=== PATIENT | male | born 1930 | race Caucasian/White ===

== ENCOUNTER 2016-07-15 20:29 | Emergency (ER) | payer MEDICARE ==
[~2016-07-15] VITALS: Ht 177.8 cm; Wt 75.9 kg
[~2016-07-15 20:29] MED LIST: ASCO500T7 PO; ASPI-894 PO; DOCU100T2 PO; FURO-124 PO; GARL1TAB PO; LABE200T3 PO; LORA10TA7 PO; MAGN800O PO; PANT40TA3 PO; POLYETHYLENE GL17 GM PO; RIVA20TA PO; SCR1T1 PO; SULF-228 PO; VALS1TAB82 PO; VITA-189 PO; VITA0.4T7 PO; [UNRECOGNIZED DRUG - CODE] MM
--- OUTSIDE RECORDS SUMMARY | 2016-07-15 20:33 | XMS REPORT | Continuity of Care Document ---
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 Role Phone CHRISTIAN CASTILLO MD PCP [phone] Insurance Providers Payer Name Policy Number Subscriber Name Relationship Medicare A And B [id number] Junior Reno Acevedo 19 Self / Same As Patient [employer] [facility] Supp [id number] Junior Reno Acevedo Self / Same As Patient Advance Directives Directive Response Recorded Date/Time Advanced Directives No 01/25/16 4:47pm Chief Complaint and Reason for Visit Chief Complaint GI BLEED Reason for Visit Erosive esophagitis Foot pain GI bleed HCAP (healthcare-associated pneumonia) HTN (hypertension) Lower extremity edema Post-nasal drainage Seasonal allergies Problems Active Problems Medical Problem Onset Date Status Acute blood loss anemia Unknown Acute Allergic rhinitis Unknown Acute CAD (coronary artery disease) Unknown Acute Erosive esophagitis Unknown Acute Foot pain 09/30/2011 Acute GI bleed Unknown Acute HCAP (healthcare-associated pneumonia) Unknown Acute HTN (hypertension) Unknown Acute Lower extremity edema Unknown Acute Post-nasal drainage Unknown Acute Seasonal allergies Unknown Acute Medications Current Home Medications Medication Dose Units Route Directions Days/Qty Instructions Start Date Ascorbic Acid 500 Mg 500 Mg ORAL Twice A Day 01/25/16 Aspirin 81 Mg 81 Mg ORAL Daily 01/25/16 Loratadine 10 Mg 10 Mg ORAL Daily 01/25/16 Valsartan/Hydrochlorothiazide 1 Each 1 Each ORAL Daily 01/25/16 Vitamin B Complex/Folic Acid 0.4 Mg 0.4 Mg ORAL Daily 01/26/16 Pantoprazole Sodium (Protonix) 40 Mg 40 Mg ORAL Daily 0 02/04/16 Sucralfate (Carafate) 1 Gm 1 Gm ORAL Before Meals And At Bedtime 0 Dissolve 1 g tab in 20-30 ml water or juice. 02/04/16 Furosemide 40 Mg 60 Mg ORAL Daily 5 Days 02/04/16 Throat Lozenges 1 Ea 1 Ea SUBMUCOSAL Every 1 Hour as needed for Sore Throat 0 02/04/16 Polyethylene Glycol 3350 17 Gm 17 Gm ORAL Daily 0 02/04/16 Docusate Sodium 100 Mg 100 Mg ORAL Twice A Day as needed for Constipation 0 02/04/16 Magnesium Hydroxide 2,400 Mg/10 Ml 2,400 Mg ORAL Four Times Daily as needed for Constipation 0 02/04/16 Past Home Medications Medication Directions Ordered Status Trimethoprim/Sulfamethoxazole 1 Ea Tablet, 2 Ea Oral Twice A Day 09/30/11 Discontinued Labetalol Hcl 200 Mg Tablet, 200 Mg Oral Twice A Day 01/25/16 Discontinued Garlic 1 Each Tablet, 1 Each Oral Daily 01/25/16 Discontinued Vitamin B Complex 1 Each Tablet, 1 Each Oral Daily 01/25/16 Discontinued Rivaroxaban 20 Mg Tablet, 20 Mg Oral Daily@0800 01/25/16 Discontinued Social History Query Response Start Date Stop Date Smoking Status Former smoker Hospital Discharge Instructions Patient's Instructions Instructions Instructions * You were evaluated and treated for gastrointestinal bleeding due to esophageal erosions. The cause of this is uncertain but you will be treated with sucralfate and pantoprazole. You will need to have a repeat upper endoscopy in about 2 months to evaluate for healing. * For anemia, you received 8 units of blood. Your blood count is expected to recover further over time. * You were also treated for severe constipation. At discharge, you will take regular stool softeners to prevent constipation. You will need to have a colonoscopy which can be arranged with your repeat upper endoscopy in about 2 months. * Because of risk of further bleeding, it is recommended you stop taking your blood thinner, rivaroxaban (Xarelto), at this time. * You were treated for pneumonia in hospital. You completed antibiotic therapy and will have a follow-up chest x-ray in 2 weeks. * You were found to have aortic stenosis, a narrowing of one of your heart valves. Review the provided handout for details. Notify your provider if you experience worse fatigue, shortness of breath, swelling, cough, or any other concerns that might suggest congestive heart failure. * You are being discharged to [facility] for further rehab in skilled care. Some of you medications have changed temporarily. Your primary care doctor will make further adjustments as needed. Activity Instructions As tolerated. No driving until further instructed by your primary care doctor. Doctor's Appointment Follow-up with your primary care doctor in 3-5 days. Follow-up with Dr. Cherry in surgery as scheduled. Discharge Diet: Regular Orders DISCHARGE: Discharge to:: SNF Xfer Skilled Nurse Facill Plan of Care Discharge Date 02/04/16 1:37pm Disposition 03 XFER [facility] Instructions/Education Provided Sucralfate (By mouth) Pantoprazole (By mouth) Congestive Heart Failure (DC) Aortic Stenosis (DC) Gastrointestinal Bleeding (DC) Community-acquired Pneumonia (DC) Prescriptions See Medication Section Follow-up Orders CXR (CHEST PA/LAT (2 VIEW)* CBC WITH AUTOMATED DIFF* RENAL PROFILE Referrals GEORGE CHERRY MD (Surgical) - 04/06/16 Address: [address] [place] [id number] Care Plan and Goals See Discharge Instructions Section Functional Status Query Response Date Recorded Level of Conscious Alert Oriented x4 February 04, 2016 8:32am Movement Moves extremities Steady gait Hand fence installer foreman equal February 04, 2016 8:32am Allergies, Adverse Reactions, Alerts Allergen Type Severity Reaction Status Last Updated Penicillin Allergy Mild Active 01/31/14 Amiodarone Allergy Unknown Active 01/31/14 isomalt Allergy Unknown Active 01/31/14 Immunizations No immunization records. Vital Signs Acute Vital Signs Vital Response Date/Time Temperature (Fahrenheit) 97.8 02/04/2016 8:01am Pulse 70 bpm 02/04/2016 8:01am Respirations 18 02/04/2016 8:01am Height 5 ft 10 in Weight 182 lb Body Mass Index 26.0 kg/m^2 Results Laboratory Results Test Name Result Units Flags Reference Collection Date/Time Result Date/ Time Comments White Blood Count 6.86 10^3uL 4.0-11.0 02/03/2016 6:00am 02/03/2016 6: 50am Red Blood Count 3.42 10^6uL L 4.50-5.50 02/03/2016 6:00am 02/03/2016 6: 50am Hemoglobin 10.3 g/dL L 13.5-17.0 02/03/2016 6:00am 02/03/2016 6:50am Hematocrit 30.80 % L 39.00-50.00 02/03/2016 6:00am 02/03/2016 6:50am Mean Corpuscular Volume 90 FL 80-100 02/03/2016 6:00am 02/03/2016 6: 50am Mean Corpuscular Hemoglobin 30.1 PG 26.0-34.0 02/03/2016 6:00am 2015 6:50am Mean Corpuscular Hemoglobin Concent 33.4 g/dL 31.0-37.0 02/03/2016 6: 00am 02/03/2016 6:50am Red Cell Distribution Width 16.0 % H 11.8-15.6 02/03/2016 6:00am 2015 6:50am Platelet Count 162 10^3uL 150-450 02/03/2016 6:00am 02/03/2016 6:50am Mean Platelet Volume 10.8 FL H 6.0-9.5 02/03/2016 6:00am 02/03/2016 6: 50am Neutrophils (%) (Auto) 76 % H 51-67 02/03/2016 6:00am 02/03/2016 6:50am Lymphocytes (%) (Auto) 14 % L 20-46 02/03/2016 6:00am 02/03/2016 6:50am Monocytes (%) (Auto) 9 % 3-11 02/03/2016 6:00am 02/03/2016 6:50am Eosinophils (%) (Auto) 2 % 0-4 02/03/2016 6:00am 02/03/2016 6:50am Basophils (%) (Auto) 0 % 0-2 02/03/2016 6:00am 02/03/2016 6:50am Neutrophils # (Auto) 5.2 X10^3 02/03/2016 6:00am 02/03/2016 6:50am Lymphocytes # (Auto) 1.0 X10^3 02/03/2016 6:00am 02/03/2016 6:50am Monocytes # (Auto) 0.6 X10^3 02/03/2016 6:00am 02/03/2016 6:50am Eosinophils # (Auto) 0.1 10^3uL 02/03/2016 6:00am 02/03/2016 6:50am Basophils # (Auto) 0.0 10^3uL 02/03/2016 6:00am 02/03/2016 6:50am Smear Scan SLIGHT ANISOCYTOSIS 01/28/2016 5:45am 01/28/2016 6:57am Differential Total Cells Counted 100 01/29/2016 5:57am 01/29/2016 7 :33am Segmented Neutrophils % 90 % H 51-67 01/29/2016 5:57am 01/29/2016 7: 33am Band Neutrophils % 0 % 0-6 01/29/2016 5:57am 01/29/2016 7:33am Lymphocytes % (Manual) 7 % L 20-46 01/29/2016 5:57am 01/29/2016 7:33am Monocytes % (Manual) 3 % 3-11 01/29/2016 5:57am 01/29/2016 7:33am Eosinophils % (Manual) 0 % 0-4 01/29/2016 5:57am 01/29/2016 7:33am Basophils % (Manual) 0 % 0-2 01/29/2016 5:57am 01/29/2016 7:33am Metamyelocytes % 0 % 0-1 01/27/2016 5:45am 01/27/2016 7:44am Neutrophils # 15.6 # 01/29/2016 5:57am 01/29/2016 7:33am Absolute Band Neutrophils 0.0 # 01/29/2016 5:57am 01/29/2016 7:33am Lymphocytes # 1.2 # 01/29/2016 5:57am 01/29/2016 7:33am Monocytes # 0.5 01/29/2016 5:57am 01/29/2016 7:33am Eosinophils # 0.0 # 01/29/2016 5:57am 01/29/2016 7:33am Basophils # (Manual) 0.0 # 01/29/2016 5:57am 01/29/2016 7:33am Blood Morphology Comment SEE REFERENCE NORMAL 01/29/2016 5:57am 01/28 7:33am Polychromasia SLIGHT 01/29/2016 5:57am 01/29/2016 7:33am Anisocytosis MODERATE 01/29/2016 5:57am 01/29/2016 7:33am Prothrombin Time 14.2 SEC H 10.0-12.5 01/27/2016 5:45am 01/27/2016 6: 48am Prothromb Time International Ratio 1.3 0.8-1.4 01/27/2016 5:45am 6:48am Activated Partial Thromboplast Time 34.7 SEC 26.3-36.8 01/26/2016 8: 16am 01/26/2016 8:34am Sodium Level 141 mmol/L 135-150 02/03/2016 6:00am 02/03/2016 7:41am Potassium Level 3.4 mmol/L L 3.5-5.1 02/03/2016 6:00am 02/03/2016 7: 41am Chloride Level 101 mmol/L 98-108 02/03/2016 6:00am 02/03/2016 7:41am Carbon Dioxide Level 34 mmol/L H 22-29 02/03/2016 6:00am 02/03/2016 7: 41am Anion Gap 9.0 MEQ/L 3-15 02/03/2016 6:00am 02/03/2016 7:41am Blood Urea Nitrogen 17 mg/dL 7-18 02/03/2016 6:00am 02/03/2016 7:41am Creatinine 0.72 mg/dL L 0.8-1.5 02/03/2016 6:00am 02/03/2016 7:41am BUN/Creatinine Ratio 39 H 10-20 01/25/2016 1:55pm 01/25/2016 3:46pm Estimat Glomerular Filtration Rate 125.8 02/03/2016 6:00am 2015 7:41am Estimated GFR (Non- 104.0 02/03/2016 6:00am 2015 7:41am Glucose Level 92 mg/dL 70-110 02/03/2016 6:00am 02/03/2016 7:41am Calculated Osmolality 270 mosm/L L 280-300 01/25/2016 1:55pm 01/25/2016 3:46pm Calcium Level 7.8 mg/dL L 8.8-10.8 02/03/2016 6:00am 02/03/2016 7:41am Calcium/Ionized Calcium Ratio 3.9 mg/dL 3.8-4.6 01/25/2016 1:55pm 01/24 3:46pm Phosphorus Level 2.3 mg/dL L 2.4-4.9 02/03/2016 6:00am 02/03/2016 7: 41am Magnesium Level 2.3 mg/dL 1.6-2.3 02/03/2016 6:00am 02/03/2016 7:41am Total Bilirubin 0.7 mg/dL 0.1-1.0 01/25/2016 1:55pm 01/25/2016 3:46pm Alkaline Phosphatase 55 U/L 38-126 01/25/2016 1:55pm 01/25/2016 3:46pm Aspartate Amino Transf (AST/SGOT) 23 U/L 15-37 01/25/2016 1:55pm 2015 3:46pm Alanine Aminotransferase (ALT/SGPT) 30 U/L 30-65 01/25/2016 1:55pm 3:46pm Total Creatine Kinase 38 U/L L 55-170 01/25/2016 1:55pm 01/25/2016 3: 46pm Creatine Kinase MB 2.0 ng/mL 0.0-6.0 01/25/2016 1:55pm 01/25/2016 3: 54pm Troponin I < 0.012 ng/mL 0.010-0.080 01/25/2016 1:55pm 01/25/2016 3: 54pm FV-Dzn-T-Type Natriuretic Peptide 6070 pg/mL H 0-450 02/03/2016 6:00am 02/03/2016 7:44am <300 ng/mL - HF unlikely Age <50 years, NT-proBNP >450 pg/mL - HF Likely Age 50-75 yrs, NT-proBNP >900 pg/mL - HF Likely Age >75 yrs, NT-proBNP >1800 - HF likely Total Protein 5.7 g/dL L 6.4-8.5 01/25/2016 1:55pm 01/25/2016 3:46pm Albumin 2.4 g/dL L 3.4-5.0 02/03/2016 6:00am 02/03/2016 7:41am Albumin/Globulin Ratio 0.838 L 1.1-1.8 01/25/2016 1:55pm 01/25/2016 3: 46pm C-Reactive Protein 0.90 mg/dL 0.0-0.9 01/25/2016 1:55pm 01/25/2016 3: 46pm Stool Occult Blood NEGATIVE NEGATIVE 01/25/2016 3:49pm 01/25/2016 4: 14pm Vancomycin Level Trough 7.2 ug/mL L 10.0-15.0 01/30/2016 11:25am 2015 12:20pm PATHOLOGY [facility] 01/27/2016 12:00pm 02/01/2016 7:21am Results received from [facility] Lab 02/01/[id number] Stool Campylobacter PCR Negative Negative 01/31/2016 10:30am 2015 2:42pm Stool C. difficile Toxin (PCR) Negative Negative 01/31/2016 10:30am 01/31/2016 2:42pm Stool Plesiomonas shigelloides PCR Negative Negative 01/31/2016 10: 30am 01/31/2016 2:42pm Stool Salmonella PCR Negative Negative 01/31/2016 10:30am 01/31/2016 2:42pm Stool Vibrio (PCR) Negative Negative 01/31/2016 10:30am 01/31/2016 2: 42pm Stool Vibrio cholera (PCR) Negative Negative 01/31/2016 10:30am 01/30 2:42pm Stool Yersinia enterocolitica (PCR) Negative Negative 01/31/2016 10: 30am 01/31/2016 2:42pm 01/31/2016 10: 30am 01/31/2016 2:41pm Stool Enteroaggregative E coli PCR Negative Negative 01/31/2016 10: 30am 01/31/2016 2:42pm Stool Enteropathogenic E. coli (PCR Negative Negative 01/31/2016 10: 30am 01/31/2016 2:42pm Stool Enterotoxigenic Ecoli PCR Negative Negative 01/31/2016 10:30am 01/31/2016 2:42pm Stool E. coli Shiga Toxins Negative Negative 01/31/2016 10:30am 01/30 2:42pm Stool E coli O157 PCR Negative Negative 01/31/2016 10:30am 2015 2:42pm Stool Shigella/EIEC (PCR) Negative Negative 01/31/2016 10:30am 2015 2:42pm 01/31/2016 10: 30am 01/31/2016 2:41pm Stool Cryptosporidium PCR Negative Negative 01/31/2016 10:30am 2015 2:42pm Stool Cyclospora cayetanensis (PCR) Negative Negative 01/31/2016 10: 30am 01/31/2016 2:42pm Stool Entamoeba histolytica (PCR) Negative Negative 01/31/2016 10: 30am 01/31/2016 2:42pm Stool Giardia Lamblia PCR Negative Negative 01/31/2016 10:30am 2015 2:42pm 01/31/2016 10: 30am 01/31/2016 2:41pm Stool Adenovirus (PCR) Negative Negative 01/31/2016 10:30am 2015 2:42pm Stool Astrovirus (PCR) Negative Negative 01/31/2016 10:30am 2015 2:42pm Stool Norovirus GI/GII PCR Negative Negative 01/31/2016 10:30am 01/30 2:42pm Stool Rotavirus A PCR Negative Negative 01/31/2016 10:30am 2015 2:42pm Stool Sapovirus (PCR) Negative Negative 01/31/2016 10:30am 2015 2:42pm 01/31/2016 10: 30am 01/31/2016 2:41pm Microbiology Results Procedure Source Result Collection Date/Time Result Date/Time Blood Culture Peripheral, :Lab Indicates After Collectio No Growth in 5 days 01/27/2016 9:45am 02/02/2016 6:37am Procedures No known history of procedures. Encounters Encounter Location Arrival/Admit Date Discharge/Depart Date Attending Provider Discharged Inpatient [facility] 01/25/16 4:05pm 02/04/16 1:37pm GEORGE CHERRY MD Recent Diagnosis Erosive esophagitis Foot pain GI bleed HCAP (healthcare-associated pneumonia) HTN (hypertension) Lower extremity edema Post-nasal drainage Seasonal allergies
[2016-07-15 21:27] LABS: BASOPHILS % (AUTO) 0 % (0-2); EOSINOPHILS % (AUTO) 0 % (0-4); LYMPHOCYTES # (AUTO) 1.3 X10^3; MEAN CORPUSCULAR HGB CONC 32.2 g/dL (31.0-37.0); MEAN CORPUSCULAR VOLUME 80 FL (80-100); MEAN PLATELET VOLUME 10.6 FL (6.0-9.5); MONOCYTES % (AUTO) 11 % (3-11); NEUTROPHILS % (AUTO) 75 % (51-67); PLATELET COUNT 158 10^3uL (150-450); WHITE BLOOD COUNT 9.34 10^3uL (4.0-11.0)
--- NOTE | 2016-07-15 21:32 | NUR ---
PT UNABLE TO VOID AT THIS TIME FOR A SPECIMEN- WILL CHECK BACK.
[2016-07-15 21:36] LABS: ALBUMIN 3.9 g/dL (3.4-5.0); ANION GAP 14.9 MEQ/L (3-15); CALCULATED IONIZED CALCIUM 3.7 mg/dL (3.8-4.6); TOTAL PROTEIN 7.7 g/dL (6.4-8.5)
[2016-07-15 21:37] LABS: MEAN CORPUSCULAR HEMOGLOBIN 25.9 PG (26.0-34.0)
[2016-07-15] MEDS ORDERED: ONDANSETRON 2 MG/ML (Z0FRAN) 2 ML VIAL IV ONE (22:05)
--- NOTE | 2016-07-15 22:27 | NUR ---
PAGED RADIOLOGY DEPT. FOR CT
[2016-07-15 23:49] LABS: BILIRUBIN,URINE Negative (Negative); COLOR,URINE Yellow; GLUCOSE, URINE (UA) Negative (Negative); LEUKOCYTE ESTERASE ,URINE Negative (Negative); PH,URINE 7.5 (5.0 - 8.0)
[2016-07-15 23:50] LABS: CLARITY,URINE Slightly Cloudy
[2016-07-15 23:51] LABS: URINE CENTRIFUGED VOLUME 12 mL
[2016-07-15 23:57] LABS: RBC,URINE >100 /HPF
[2016-07-16 00:47] VITALS: BP 140/80
--- NOTE | 2016-07-16 06:13 | Diagnostic Imaging Report ---
PROCEDURE: CT abdomen and pelvis without contrast. TECHNIQUE: Multiple contiguous axial images were obtained through the abdomen and pelvis without the use of intravenous contrast. INDICATION: Right upper quadrant pain COMPARISON: January 25, 2016 FINDINGS: Pacer leads are partially visualized. Large hiatal hernia is seen. A 7 mm pulmonary nodule is identified within the left lower lobe, which is new from the prior examination. Mild bibasilar scarring and/or atelectasis. The unenhanced liver and spleen are unremarkable. Mild right-sided hydronephrosis. No definite renal or ureteral calculus identified. The left kidney is unremarkable. The gallbladder is grossly unremarkable. Moderate vascular calcifications within the abdominal aorta and its branch vessels without aneurysmal dilatation of the abdominal aorta. The prostate gland and seminal vesicles are enlarged, appearing more prominent than the prior examination. Small fluid containing left inguinal hernia. The colon is significantly redundant. Significant amount of stool is noted within the proximal colon, though the descending and sigmoid colon are predominantly decompressed. No small bowel dilatation. The appendix is not clearly visualized. Mild cholelithiasis. The heart is enlarged. No significant adenopathy or free air. Trace free fluid within the lower pelvis. S-shaped curvature of the visualized thoracolumbar spine. Scattered osseous degenerative changes. Anterolisthesis of L4 on S1. No acute osseous abnormality. IMPRESSION: Mild right-sided hydronephrosis. No definite obstructing renal or ureteral calculus is seen. This may relate to prior resolved obstruction, though this does appear new since January 2016. Distended gas and stool filled proximal colon with decompressed descending and sigmoid colon. At least a partial distal colonic obstruction cannot be excluded based upon this exam. Of note, this appears fairly similar to the prior examination from 2016. Significant enlargement of the prostate gland and seminal vesicles, appearing more prominent than the prior examination. This could relate to underlying prostatitis. Recommend clinical correlation. New 7 mm pulmonary nodule within the left lower lobe. This is of uncertain etiology. However, given interval development since January 2016, neoplasm should be considered. CT guided biopsy is recommended. Minimal cholelithiasis. Moderate-sized hiatal hernia. Cardiomegaly. Trace free fluid within the lower pelvis. Additional findings as above. Agree with preliminary interpretation. Dictated by: Dictated on workstation # [id number]
== END 2016-07-16 00:48 | disposition home or self-care (01) ==
LOC: ED 20:31
DX: R10.11 Right upper quadrant pain (principal)
CPT/HCPCS: 36415; 74176; 80053; 81003; 81015; 83690; 85025; 96361; 96374; 99283; J2405; J7030

== ENCOUNTER 2016-07-29 07:09 | Day surgery (SDC) | payer MEDICARE ==
[~2016-07-29] VITALS: Ht 177.8 cm; Wt 70.0 kg
[2016-07-29] VITALS (16 sets, daily range): BP systolic 80–155; BP diastolic 40–88
[~2016-07-29 07:09] MED LIST changes: +LACTATED RINGERS 1,000 ML IV SCH; +LIDOCAINE 4% TOPICAL 4.5 ML SYR ONE; +SIMETHICONE 40 MG/0.6 ML (MYLICON DROPS) ORAL SYRINGE ONE; +SODIUM CHLORIDE FLUSH 3 ML SYR IV PRN
--- OUTSIDE RECORDS SUMMARY | 2016-07-29 07:13 | XMS REPORT | Continuity of Care Document ---
Author Author [facility] Address Unknown Phone Unavailable Care Team Providers Care Podopediatrician Name Role Phone ANNACHRISTIAN MD PCP [phone] Insurance Providers Payer Name Policy Number Subscriber Name Relationship Medicare A And B [id number] Junior [place] Mon 18 Self / Same As Patient [employer] [facility] [id number] Junior [place] Mon 18 Self / Same As Patient Advance Directives Directive Response Recorded Date/Time Advanced Directives Yes 07/15/16 8:48pm Chief Complaint and Reason for Visit Chief Complaint GI Complaint Reason for Visit [id number] Abdominal pain Problems Active Problems Medical Problem Onset Date Status Abdominal pain Unknown Acute Acute blood loss anemia Unknown Acute Allergic rhinitis Unknown Acute CAD (coronary artery disease) Unknown Acute Erosive esophagitis Unknown Acute Foot pain 09/30/2011 Acute GI bleed Unknown Acute HCAP (healthcare-associated pneumonia) Unknown Acute HTN (hypertension) Unknown Acute Kidney stone Unknown Acute Lower extremity edema Unknown Acute [...] Smoking Status Former smoker Hospital Discharge Instructions No hospital discharge instructions. Plan of Care Discharge Date 07/16/16 12:48am Disposition 01 HOME OR SELF-CARE Condition at Discharge Stable Instructions/Education Provided Kidney Stones in Adults Prescriptions See Medication Section Referrals CHRISTIAN CASTILLO MD - Additional Instructions/Education Over the next 48 hours drink a lot of water. Take stool softener as directed along with your laxative and fiber. Follow-up as needed Some of your test results may not be complete prior to your leaving the Emergency Department. The Emergency Department is not authorized to give test results over the phone. Please contact the doctor's office listed in this packet of information for your final results. Follow up with your primary care physician or return to the Emergency Department for worsening or worrisome symptoms. * Emergency Department phone number: [phone], x [phone]* MEDICAL RECORD If you need copies of your X-rays, call [phone]. If you need copies of your medical record, including lab results, a signed authorization for release of records will be required. A telephone call for release of Health Information is not allowed. BILLING Billing can sometimes be confusing and frustrating. To help avoid confusion in the future, please take a moment to acquaint yourself with the billing parties for services. SERVICE BILLING [employer]STITUTION [employer]Y Emergency Room Services [facility] Physician Services [facility] X-rays [facility] Patients will receive bills for services from the appropriate provider. If you have any questions about your [facility] bill, our staff will be happy to assist you. Please call [phone], and ask for the billing department. THANK YOU for choosing [facility] as your emergency care provider! Care Plan and Goals ~~Discharge Care Plan~~ Problem: Kidney stone Goal: Pass the kidney stone and decrease pain. Instructions: Strain all urine. When you pass the kidney stone, keep stone and take it to the physician's office as directed, for stone analysis. Drink 6-8 glasses of water or fresh squeezed lemonade. Follow discharge instructions as directed. Functional Status No functional status results. Allergies, Adverse Reactions, Alerts Allergen Type Severity Reaction Status Last Updated Penicillin Allergy Mild Active 07/15/16 Amiodarone Allergy Unknown Active 07/15/16 isomalt Allergy Unknown Active 07/15/16 Immunizations No immunization records. Vital Signs Acute Vital Signs Vital Response Date/Time Temperature (Fahrenheit) 98.7 07/16/2016 12:47am Pulse 76 bpm 07/16/2016 12:47am Respirations 18 07/16/2016 12:47am Height 5 ft 10 in Weight 167 lb Body Mass Index 24.0 kg/m^2 Results Laboratory Results Test Name Result Units Flags Reference Collection Date/Time Result Date/ Time Comments White Blood Count 9.34 10^3uL 4.0-11.0 07/15/2016 9:12pm 07/15/2016 9: 39pm Red Blood Count 4.44 10^6uL L 4.50-5.50 07/15/2016 9:07/15/2016 9: 39pm Hemoglobin 11.5 g/dL L 13.5-17.0 07/15/2016 9:07/15/2016 9:39pm Hematocrit 35.70 % L 39.00-50.00 07/15/2016 9:07/15/2016 9:39pm Mean Corpuscular Volume 80 FL 80-100 07/15/2016 9:07/15/2016 9: 39pm Mean Corpuscular Hemoglobin 25.9 PG L 26.0-34.0 07/15/2016 9:2016 9:39pm Mean Corpuscular Hemoglobin Concent 32.2 g/dL 31.0-37.0 07/15/2016 9: 07/15/2016 9:39pm Red Cell Distribution Width 22.0 % H 11.8-15.6 07/15/2016 9:2016 9:39pm Platelet Count 158 10^3uL 150-450 07/15/2016 9:07/15/2016 9:39pm Mean Platelet Volume 10.6 FL H 6.0-9.5 07/15/2016 9:07/15/2016 9: 39pm Neutrophils (%) (Auto) 75 % H 51-67 07/15/2016 9:07/15/2016 9:39pm Lymphocytes (%) (Auto) 14 % L 20-46 07/15/2016 9:07/15/2016 9:39pm Monocytes (%) (Auto) 11 % 3-11 07/15/2016 9:07/15/2016 9:39pm Eosinophils (%) (Auto) 0 % 0-4 07/15/2016 9:07/15/2016 9:39pm Basophils (%) (Auto) 0 % 0-2 07/15/2016 9:07/15/2016 9:39pm Neutrophils # (Auto) 7.0 X10^3 07/15/2016 9:07/15/2016 9:39pm Lymphocytes # (Auto) 1.3 X10^3 07/15/2016 9:07/15/2016 9:39pm Monocytes # (Auto) 1.0 X10^3 07/15/2016 9:12pm 07/15/2016 9:39pm Eosinophils # (Auto) 0.0 10^3uL 07/15/2016 9:12pm 07/15/2016 9:39pm Basophils # (Auto) 0.0 10^3uL 07/15/2016 9:12pm 07/15/2016 9:39pm Smear Scan ANISOCYTOSIS 2+ POIKILOCYTOSIS 1+ ADEQUATE PLATELETS 07/15/2016 9:12pm 07/15/2016 9:39pm Volume Urine Centrifuged 12 mL 07/15/2016 10:05pm 07/15/2016 11: 57pm Urine Collection Type CLEAN CATCH 07/15/2016 10:05pm 07/15/2016 11: 57pm Urine Color Yellow 07/15/2016 10:05pm 07/15/2016 11:51pm Urine Clarity Slightly Cloudy 07/15/2016 10:05pm 07/15/2016 11: 51pm Urine pH 7.5 5.0 - 8.0 07/15/2016 10:05pm 07/15/2016 11:51pm Urine Specific [place] 1.020 1.005-1.030 07/15/2016 10:05pm 2016 11:51pm Urine Protein 2+ H Negative 07/15/2016 10:05pm 07/15/2016 11:51pm Urine Glucose (UA) Negative Negative 07/15/2016 10:05pm 07/15/2016 11 :51pm Urine Blood 3+ H Negative 07/15/2016 10:05pm 07/15/2016 11:51pm Urine Ketones Negative Negative 07/15/2016 10:05pm 07/15/2016 11: 51pm Urine Nitrite Negative Negative 07/15/2016 10:05pm 07/15/2016 11: 51pm Urine Bilirubin Negative Negative 07/15/2016 10:05pm 07/15/2016 11: 51pm Urine Urobilinogen 1.0 mg/dL 0.2-1.0 07/15/2016 10:05pm 07/15/2016 11: 51pm Urine Leukocyte Esterase Negative Negative 07/15/2016 10:05pm 2016 11:51pm Urine Microscopic RBC >100 /HPF 07/15/2016 10:05pm 07/15/2016 11: 57pm Urine WBC 2-5 /HPF 07/15/2016 10:05pm 07/15/2016 11:57pm Urine Bacteria Rare /HPF 07/15/2016 10:05pm 07/15/2016 11:57pm Urine Squamous Epithelial Cells 2-5 /LPF 07/15/2016 10:05pm 2016 11:57pm Urine Mucus 1+ 07/15/2016 10:05pm 07/15/2016 11:57pm Sodium Level 141 mmol/L 135-150 07/15/2016 9:12p07/15/2016 9:41pm Potassium Level 4.2 mmol/L # 3.5-5.1 07/15/2016 9:07/15/2016 9:41pm Chloride Level 102 mmol/L 98-108 07/15/2016 9:07/15/2016 9:41pm Carbon Dioxide Level 28 mmol/L 22-29 07/15/2016 9:07/15/2016 9: 41pm Anion Gap 14.9 MEQ/L 3-15 07/15/2016 9:07/15/2016 9:41pm Blood Urea Nitrogen 26 mg/dL # H 7-18 07/15/2016 9:07/15/2016 9: 41pm Creatinine 0.92 mg/dL 0.8-1.5 07/15/2016 9:07/15/2016 9:41pm BUN/Creatinine Ratio 28 H 10-20 07/15/2016 9:07/15/2016 9:41pm Estimat Glomerular Filtration Rate 94.6 07/15/2016 9:2016 9:41pm Estimated GFR (Non- 78.2 07/15/2016 9:2016 9:41pm Glucose Level 101 mg/dL 70-110 07/15/2016 9:07/15/2016 9:41pm Calculated Osmolality 278 mosm/L L 280-300 07/15/2016 9:07/15/2016 9:41pm Calcium Level 8.9 mg/dL 8.8-10.8 07/15/2016 9:07/15/2016 9:41pm Calcium/Ionized Calcium Ratio 3.7 mg/dL L 3.8-4.6 07/15/2016 9:02/2017 9:41pm Total Bilirubin 1.6 mg/dL # H 0.1-1.0 07/15/2016 9:07/15/2016 9: 41pm Alkaline Phosphatase 133 U/L H 38-126 07/15/2016 9:07/15/2016 9: 41pm Aspartate Amino Transf (AST/SGOT) 42 U/L H 15-37 07/15/2016 9:07/15 9:41pm Alanine Aminotransferase (ALT/SGPT) 32 U/L 30-65 07/15/2016 9:02/2017 9:41pm Total Protein 7.7 g/dL 6.4-8.5 07/15/2016 9:07/15/2016 9:41pm Albumin 3.9 g/dL # 3.4-5.0 07/15/2016 9:12p07/15/2016 9:41pm Albumin/Globulin Ratio 1.026 L 1.1-1.8 07/15/2016 9:12p07/15/2016 9: 41pm Lipase 98 U/L 23-300 07/15/2016 9:12p07/15/2016 9:41pm Procedures No known history of procedures. Encounters Encounter Location Arrival/Admit Date Discharge/Depart Date Attending Provider Registered Emergency Room [facility] 07/15/16 8:31pm CHRISTIAN KITCHEN MD Recent Diagnosis
[2016-07-29] MEDS ORDERED: PROPOFOL 20 ML IV ONE (08:34)
[2016-07-29] MEDS ORDERED: MIDAZOLAM 2 MG/2 ML (VERSED) VIAL ONE (08:34)
[2016-07-29] MEDS ORDERED: LIDOCAINE 2% BOLUS 100 MG/5 ML (XYLOCAINE) SYRINGE ONE (08:35)
[2016-07-29] MEDS ORDERED: ALFENTANIL 500 MCG/ML (ALFENTA) 5 ML AMP IV ONE (08:35)
[2016-07-29] MEDS ORDERED: FLUMAZENIL (ROMAZICON) 0.1 MG/ML 5 ML VIAL ONE (09:03)
[2016-07-29] MEDS ORDERED: NALOXONE 0.4 MG/ML (NARCAN) 1 ML VIAL ONE (09:03)
--- NOTE | 2016-07-29 10:59 | OPERATIVE REPORT ---
DATE OF OPERATION: 07/29/2016 PRE-OPERATIVE DIAGNOSIS: 1. Anemia. 2. History of esophageal ulcer. 3. Abnormal appearing colon on CT scan. POST-OPERATIVE DIAGNOSIS: 1. Healed esophageal ulcer. 2. Mild chronic antral gastritis. 3. Patent left colon. 4. Poor colon prep. OPERATIVE PROCEDURE: 1. Esophagogastroduodenoscopy. 2. Flexible sigmoidoscopy. SURGEON: Balta Hassan MD ANESTHESIA: Topical plus IV conscious sedation. Monitored Anesthesia Services. POSITION: Semi-recumbent with slight left rotation for upper endoscopy and left lateral decubitus for lower endoscopy. FINDINGS: 1. Prior esophageal ulcer healed with normal appearing esophagus. 2. Stomach normal except for some mild chronic gastritis. 3. Duodenal bulb and duodenum appeared normal. 4. Left colon appeared normal. Progressive amounts of stool prevented advancement of the scope beyond the splenic flexure. 5. No mass lesions or constrictions noted, left colon. 6. Sigmoid anastomosis appeared widely patent. INDICATIONS: This patient was hospitalized with anemia and discovered at upper endoscopy to have esophageal ulceration. Biopsies of this were negative at the time. He is also on CT scan had a dilated descending colon with a questionable narrowing of his previous anastomosis in the distal sigmoid. He returns at this time for a panendoscopy to confirm ulcer healing, and also to determine if there is any colonic lesion responsible for the above findings on CT. OPERATIVE NOTE: Following satisfactory induction of analgesia, a bite block was inserted per os. The gastroscope was inserted through the bite block and advanced into the oropharynx. The pharynx, vocal cords, and larynx appeared normal. The patient was allowed to swallow the scope, which was advanced through the esophagus, stomach and duodenum to the second portion, including retroflexed view of the gastric fundus. Above findings were noted. [employer] photographs were obtained. Excess insufflated CO2 was evacuated and the scope removed. Next a digital rectal exam revealed normal sphincter tone with a smooth enlarged prostate. No rectal mass was palpable. The colonoscope was introduced per rectum and advanced under CO2 insufflation and direct vision. The patient's previous suture line from his anastomosis was clearly visible and widely patent. The scope was further advanced into the descending colon where progressively larger amounts of stool were encountered coating the wall of the colon, and eventually making forward view difficult at the splenic flexure. Therefore I felt for safety reasons that the procedure should be terminated. In any event, no mass lesions or strictures were identified in the left colon. Excess insufflated CO2 was evacuated and the scope removed. RECOMMENDATIONS: If there is still concern for potential colonic lesions, the patient should undergo repeat procedure with a double bowel prep. I will discuss the potential options with the patient in the office in follow up.
== END 2016-07-29 12:30 | disposition home or self-care (01) ==
LOC: ASC 07:09
PROVIDERS: ATTEND Surgery
DX: D64.9 Anemia, unspecified (principal); K63.89 Other specified diseases of intestine; R93.3 Abnormal findings on diagnostic imaging of other parts of digestive tract; K29.50 Unspecified chronic gastritis without bleeding; I48.91 Unspecified atrial fibrillation; N40.0 Benign prostatic hyperplasia without lower urinary tract symptoms; Z98.0 Intestinal bypass and anastomosis status; Z87.11 Personal history of peptic ulcer disease; I10 Essential (primary) hypertension; I25.10 Atherosclerotic heart disease of native coronary artery without angina pectoris
CPT/HCPCS: 36415; 43235; 45330; 85610; A9270; J2250; J2310; J3490